=== PATIENT | female | born 1980 | race Caucasian/White ===

== ENCOUNTER 2021-11-21 12:18 | Outpatient (CLI) | payer MEDICAID, SELFPAY ==
[2021-11-21 12:22] LABS: Ur HCG Qualitative* Negative (Negative)
== END 2021-11-21 12:19 | disposition home or self-care (01) ==
LOC: FBOREF 12:18
PROVIDERS: PCP Family Medicine; Visit Provider Family Medicine
DX: M54.50 Low back pain, unspecified (principal); Z30.40 Encounter for surveillance of contraceptives, unspecified
CPT/HCPCS: 81025